=== PATIENT | male | born 1965 | race American Indian/Alaskan Native ===

== ENCOUNTER 2018-12-23 08:46 | Emergency (ER) | payer BC, OTHER ==
[2018-12-23] MEDS ORDERED: HYDROmorphone 1 MG/ML Syringe IVPUSH ONE ×2 (09:34→13:32)
[2018-12-23] MEDS ORDERED: Sodium Chloride 0.9% 10 ML Syringe FLUSH PRN (09:34)
[2018-12-23] MEDS ORDERED: Lactated Ringers 1,000 ML IV ONE (09:34)
[2018-12-23] MEDS ORDERED: Ondansetron 4 MG/2 ML SDV IVPUSH ONE (09:34)
--- NOTE | 2018-12-23 09:37 | EDM.PDOC ---
ED HPI GENERAL MEDICAL PROBLEM - General Chief Complaint: Abdominal Pain Stated Complaint: PAIN UNDER RIB CAGE Time Seen by Provider: 12/23/18 09:35 Source of Information: Reports: Patient History Limitations: Reports: No Limitations - History of Present Illness INITIAL COMMENTS - FREE TEXT/NARRATIVE: 53-year-old male presents for evaluation and treatment of upper abdominal pain. He reports the pain started on Friday, gradual onset. He describes as a burning ache and cramping sensation. It appears to be worse with sitting and better with standing and laying flat. He states it hurts to cough or take a deep breath he has had "a little bit of a cough ". Rates pain as a 9 out of 10. He denies any fevers, chills, nausea, vomiting or diarrhea. No chest pain or shortness of breath. Patient denies previous abdominal surgeries. He denies any recent trauma to the chest or abdomen. Onset: Gradual Duration: Day(s): (3), Constant Location: Reports: Abdomen (upper abdomen). Denies: Chest, Back Quality: Reports: Ache, Burning Severity: Severe Improves with: Reports: Movement (standing and laying flat) Worsens with: Reports: Breathing (and coughing), Other (sitting) Associated Symptoms: Denies: Chest Pain, cough w sputum, Fever/Chills, Nausea/ Vomiting, Shortness of Breath Bilateral Upper Abdomen Pain Score (Numeric/FACES): 9 - Related Data Allergies Allergy/AdvReac Type Severity Reaction Status Date / Time codeine Allergy Swelling Verified 12/23/18 08:54 Home Meds: Home Meds Cyclobenzaprine [Flexeril] 10 mg PO DAILY PRN 12/23/18 [History] Omeprazole 20 mg PO DAILY #20 tablet. 12/23/18 [Rx] Sucralfate [Carafate] 1 gm PO TID #30 tablet 12/23/18 [Rx] traMADol [Ultram] 50 mg PO Q4H PRN #20 tab 12/23/18 [Rx] Past Medical History Musculoskeletal History: Reports: Back Pain, Chronic, Neck Pain, Chronic - Past Surgical History Musculoskeletal Surgical History: Reports: Other (See Below) Other Musculoskeletal Surgeries/Procedures:: multiple back and neck surgeries Social & Family History - Tobacco Use Smoking Status *Q: Current Some Day Smoker Years of Tobacco use: 10 Packs/Tins Daily: 0.1 - Caffeine Use Caffeine Use: Reports: None - Recreational Drug Use Recreational Drug Use: No ED ROS GENERAL - Review of Systems Review Of Systems: See Below Constitutional: Denies: Fever, Chills Respiratory: Reports: Cough ("little bit"). Denies: Shortness of Breath, Sputum Cardiovascular: Denies: Chest Pain GI/Abdominal: Reports: Abdominal Pain (upper abdomen). Denies: Nausea, Vomiting Musculoskeletal: Denies: Leg Pain (no leg swelling) ED EXAM, GI/ABD - Physical Exam Exam: See Below Exam Limited By: No Limitations General Appearance: Alert, WD/WN, Mild Distress, Obese Ears: Normal External Exam Nose: Normal Inspection Throat/Mouth: Normal Inspection, Normal Lips, Normal Oropharynx, Normal Voice, No Airway Compromise Respiratory/Chest: No Respiratory Distress, Lungs Clear, Normal Breath Sounds, Chest Non-Tender Cardiovascular: Normal Peripheral Pulses, Regular Rate, Rhythm, No Murmur GI/Abdominal Exam: Normal Bowel Sounds, Soft, Tender (RUQ and epigastric area) Extremities: Normal Inspection Neurological: Alert, Oriented, Normal Cognition Psychiatric: Normal Affect, Normal Mood Skin Exam: Warm, Dry, Normal Color Course - Vital Signs Last Recorded V/S: Last Vital Signs Temp 97.6 F 12/23/18 08:56 Pulse 60 12/23/18 08:56 Resp 19 12/23/18 08:56 BP 157/95 H 12/23/18 08:56 Pulse Ox 100 12/23/18 08:56 - Orders/Labs/Meds Orders: Active Orders 24 hr Category Date Time Status Peripheral IV Care [RC] . DIRECTED Care 12/23/18 09:34 Active Peripheral IV Insertion Adult [OM.PC] Routine Oth 12/23/18 09:34 Ordered Labs: Laboratory Tests 12/23/18 12/23/18 12/23/18 Range/Units 09:10 09:10 09:45 WBC 6.88 (4.23-9.07) K/mm3 RBC 4.86 (4.63-6.08) M/mm3 Hgb 15.0 (13.7-17.5) gm/L Hct 45.4 (40.1-51.0) % MCV 93.4 H (79.0-92.2) fl MCH 30.9 (25.7-32.2) pg MCHC 33.0 (32.2-35.5) g/dl RDW Std Deviation 45.3 H (35.1-43.9) fL Plt Count 199 (163-337) K/mm3 MPV 9.8 (9.4-12.3) fl Neutrophils % (Manual) 74 H (40-60) % Band Neutrophils % 0 (0-10) % Lymphocytes % (Manual) 15 L (20-40) % Atypical Lymphs % 0 % Monocytes % (Manual) 8 (2-10) % Eosinophils % (Manual) 3 (0.8-7.0) % Basophils % (Manual) 0 L (0.2-1.2) Platelet Estimate Adequate RBC Morph Comment Normal Sodium 139 (136-145) mEq/L Potassium 4.4 (3.5-5.1) mEq/L Chloride 102 (98-107) mEq/L Carbon Dioxide 26 (21-32) mEq/L Anion Gap 15.4 H (5-15) BUN 16 (7-18) mg/dL Creatinine 1.1 (0.7-1.3) mg/dL Est Cr Clr Drug Dosing 92.37 mL/min Estimated GFR (MDRD) > 60 (>60) mL/min BUN/Creatinine Ratio 14.5 (14-18) Glucose 115 H (74-106) mg/dL Calcium 9.4 (8.5-10.1) mg/dL Total Bilirubin 0.3 (0.2-1.0) mg/dL GGT 121 H (15-85) U/L AST 27 (15-37) U/L ALT 51 (16-63) U/L Alkaline Phosphatase 66 (46-116) U/L C-Reactive Protein 0.2 (<1.0) mg/dL Total Protein 7.7 (6.4-8.2) g/dl Albumin 4.0 (3.4-5.0) g/dl Globulin 3.7 gm/dL Albumin/Globulin Ratio 1.1 (1-2) Amylase 38 (25-115) U/L Lipase 103 (73-393) U/L Urine Color Yellow (Yellow) Urine Appearance Clear (Clear) Urine pH 6.0 (5.0-8.0) Ur Specific [place] 1.020 (1.005-1.030) Urine Protein Negative (Negative) Urine Glucose (UA) Negative (Negative) Urine Ketones Negative (Negative) Urine Occult Blood Negative (Negative) Urine Nitrite Negative (Negative) Urine Bilirubin Negative (Negative) Urine Urobilinogen 0.2 (0.2-1.0) Ur Leukocyte Esterase Negative (Negative) Urine RBC Not seen (0-5) /hpf Urine WBC 0-5 (0-5) /hpf Ur Epithelial Cells 0-5 (0-5) /hpf Amorphous Sediment Rare H (NOT SEEN) /hpf Urine Bacteria Few (FEW) /hpf Urine Mucus Few (FEW) /hpf Meds: Medications Discontinued Medications Generic Name Dose Route Start Last Admin Trade Name Freq PRN Reason Stop Dose Admin Diatrizoate Meglum/Diatrizoate Sod 90 ml 12/23/18 12:40 12/23/18 13:26 Gastrografin 37% PO 12/23/18 12:41 90 ml ONETIME ONE Administration Hydromorphone HCl 1 mg 12/23/18 09:34 12/23/18 09:44 Dilaudid IVPUSH 12/23/18 09:35 1 mg ONETIME ONE Administration Hydromorphone HCl 0.5 mg 12/23/18 11:35 12/23/18 11:37 Dilaudid IVPUSH 12/23/18 11:36 0.5 mg ONETIME ONE Administration Hydromorphone HCl Confirm 12/23/18 11:37 12/23/18 13:20 Dilaudid Administered 12/23/18 11:38 Not Given Dose 0.5 mg .ROUTE .STK-MED ONE Hydromorphone HCl 0.5 mg 12/23/18 13:32 12/23/18 13:47 Dilaudid IVPUSH 12/23/18 13:33 0.5 mg ONETIME ONE Administration Lactated Ringer's 1,000 mls @ 999 mls/hr 12/23/18 09:34 12/23/18 09:42 Ringers, Lactated IV 12/23/18 10:34 999 mls/hr .BOLUS ONE Administration Iohexol 100 ml 12/23/18 12:40 12/23/18 13:26 Omnipaque-300 IVPUSH 12/23/18 12:41 100 ml ONETIME ONE Administration Ondansetron HCl 4 mg 12/23/18 09:34 12/23/18 09:43 Zofran IVPUSH 12/23/18 09:35 4 mg ONETIME ONE Administration Sodium Chloride 10 ml 12/23/18 09:34 12/23/18 09:41 Saline Flush FLUSH 10 ml ASDIRECTED PRN Administration Keep Vein Open Sodium Chloride 10 ml 12/23/18 12:40 12/23/18 13:26 Saline Flush FLUSH 12/23/18 12:41 10 ml ONETIME ONE Administration - Radiology Interpretation Free Text/Narrative:: Limited abdominal ultrasound: Multiple real-time images of the upper right abdomen were obtained. Comparison: No prior abdominal ultrasound. Liver is echogenic. No discrete focal abnormality is seen within the liver. Gallbladder shows no shadowing gallstones. No gallbladder wall thickening or biliary duct dilatation is seen. Right kidney shows no hydronephrosis or mass. Portal vein shows normal hepatopedal flow. Inferior vena cava is patent. Pancreas is mostly obscured from bowel gas. Impression: 1. Probable fatty infiltration within the liver. 2. Poorly seen pancreas. 3. No additional abnormality is appreciated on right upper quadrant abdominal ultrasound exam. Abdomen: Supine and upright views of the abdomen were obtained. Comparison: No prior abdominal x-ray. Bowel gas pattern is normal. No abnormal calcifications are seen. No free air is seen. Scattered endplate spurring is noted within the spine. Impression: 1. Incidental findings. Nothing acute is seen. CT abdomen and pelvis Technique: Multiple axial sections were obtained from above the dome of the diaphragm inferiorly through the pubic symphysis. Intravenous and oral contrast was utilized. Delayed images were obtained through the bladder. Findings: Small portion of the visualized lung bases are clear. Liver contains no focal abnormality. Spleen appears within normal limits. Adrenal glands show no nodule. Pancreas is within normal limits. Gallbladder contains no calcified gallstones. Kidneys show symmetric contrast enhancement without hydronephrosis or mass. Aorta shows no aneurysm. No retroperitoneal adenopathy or mesenteric abnormalities are seen. No pelvic mass or adenopathy is seen. Delayed images show contrast within the distal ureters and within the bladder. Appendix is visualized and appears normal in size. No free fluid or inflammatory change is seen within the abdomen or within the pelvis. Bone window settings were reviewed which show severe disc space narrowing at L5- S1. Degenerative change is noted within the apophyseal joints at L5-S1. Small fat-containing umbilical hernia is noted. Impression: 1. Incidental findings. Nothing acute is appreciated on CT study of the abdomen and pelvis. - Re-Assessments/Exams Free Text/Narrative Re-Assessment/Exam: 12/23/18 14:25 Reviewed labs and imaging with the patient. Obtained abdominal ultrasound and xray initially. Xray reviewed with Dr. Morales. Questionable area in the stomach, suggested abdomen/pelvis CT. Patient required several doses of pain medication during stay. CT found to be unremarkable. Dr. Morales suggested treatment for constipation. Recommended to patient along with close follow-up. Pain could also be from an ulcer or acalculous cholecystitis. Recommend close follow-up with PCP in [facility]. Patient in agreement. Will discharge home at this time. Discharge instructions as documented. Departure - Departure Time of Disposition: 14:30 Disposition: Home, Self-Care 01 Condition: Fair Clinical Impression: GERD (gastroesophageal reflux disease), Constipation - Discharge Information *PRESCRIPTION DRUG MONITORING PROGRAM REVIEWED*: No *COPY OF PRESCRIPTION DRUG MONITORING REPORT IN PATIENT OBDULIA: No Prescriptions: Omeprazole 20 mg PO DAILY #20 tablet. Sucralfate [Carafate] 1 gm PO TID #30 tablet traMADol [Ultram] 50 mg PO Q4H PRN #20 tab PRN Reason: Pain Instructions: Constipation, Adult, [id number], Gastroesophageal Reflux Disease, Adult Referrals: PCP,Unknown [Primary Care Provider] - Forms: ED Department Discharge Additional Instructions: you were given medication in the ER that can affect your ability to drive and operate machinery. Do not drive or operate machinery within 10 hours of taking perception narcotic pain medication. may take tramadol 1 tab every 4-6 hours as needed for pain. Take the omeprazole 1 tab daily. Take the Carafate 1 tab 3 times with meals. The contrast you had today in the ER is a mild laxative. If you do have a large bowel movement from this recommend some [id number] lactulose. Make sure you are drinking plenty of fluids. Follow-up with your primary care provider next week for recheck of your symptoms. Please return to the ER if your symptoms change or worsen. - My Orders Last 24 Hours: My Active Orders 12/23/18 09:34 Peripheral IV Care [RC] . DIRECTED Peripheral IV Insertion Adult [OM.PC] Routine - Assessment/Plan Last 24 Hours: My Active Orders 12/23/18 09:34 Peripheral IV Care [RC] . DIRECTED Peripheral IV Insertion Adult [OM.PC] Routine
[2018-12-23] MEDS ORDERED: HYDROmorphone 0.5 MG/0.5 ML Syringe IVPUSH ONE (11:35)
[2018-12-23] MEDS ORDERED: HYDROmorphone 0.5 MG/0.5 ML Syringe ONE (11:37)
[2018-12-23] MEDS ORDERED: Iohexol 647 MG/ML 100 ML Bottle IVPUSH ONE (12:40)
[2018-12-23] MEDS ORDERED: Diatrizoate Meglumine/Diatrizoate Sodium 37% 120 ML Bottle PO ONE (12:40)
[2018-12-23] MEDS ORDERED: Sodium Chloride 0.9% 10 ML Syringe FLUSH ONE (12:40)
--- NOTE | 2018-12-23 13:48 | CR ---
Abdomen: Supine and upright views of the abdomen were obtained. Comparison: No prior abdominal x-ray. Bowel gas pattern is normal. No abnormal calcifications are seen. No free air is seen. Scattered endplate spurring is noted within the spine. Impression: 1. Incidental findings. Nothing acute is seen. Diagnostic code #2
--- NOTE | 2018-12-23 13:48 | US ---
Limited abdominal ultrasound: Multiple real-time images of the upper right abdomen were obtained. Comparison: No prior abdominal ultrasound. Liver is echogenic. No discrete focal abnormality is seen within the liver. Gallbladder shows no shadowing gallstones. No gallbladder wall thickening or biliary duct dilatation is seen. Right kidney shows no hydronephrosis or mass. Portal vein shows normal hepatopedal flow. Inferior vena cava is patent. Pancreas is mostly obscured from bowel gas. Impression: 1. Probable fatty infiltration within the liver. 2. Poorly seen pancreas. 3. No additional abnormality is appreciated on right upper quadrant abdominal ultrasound exam. Diagnostic code #2
--- NOTE | 2018-12-23 13:51 | CT ---
CT abdomen and pelvis Technique: Multiple axial sections were obtained from above the dome of the diaphragm inferiorly through the pubic symphysis. Intravenous and oral contrast was utilized. Delayed images were obtained through the bladder. Findings: Small portion of the visualized lung bases are clear. Liver contains no focal abnormality. Spleen appears within normal limits. Adrenal glands show no nodule. Pancreas is within normal limits. Gallbladder contains no calcified gallstones. Kidneys show symmetric contrast enhancement without hydronephrosis or mass. Aorta shows no aneurysm. No retroperitoneal adenopathy or mesenteric abnormalities are seen. No pelvic mass or adenopathy is seen. Delayed images show contrast within the distal ureters and within the bladder. Appendix is visualized and appears normal in size. No free fluid or inflammatory change is seen within the abdomen or within the pelvis. Bone window settings were reviewed which show severe disc space narrowing at L5-S1. Degenerative change is noted within the apophyseal joints at L5-S1. Small fat-containing umbilical hernia is noted. Impression: 1. Incidental findings. Nothing acute is appreciated on CT study of the abdomen and pelvis. Diagnostic code #2
== END 2018-12-23 14:45 | disposition home or self-care (01) ==
LOC: JD.ED 08:46
DX: K21.9 Gastro-esophageal reflux disease without esophagitis (principal); K59.00 Constipation, unspecified; F17.210 Nicotine dependence, cigarettes, uncomplicated; Z79.899 Other long term (current) drug therapy; Z88.5 Allergy status to narcotic agent
CPT/HCPCS: 36415; 74019; 74177; 76705; 80053; 81001; 82150; 82977; 83690; 85007; 85027; 86140; 96361; 96374; 96375; 96376; 99284; J1170; J2405; J7120; Q9963; Q9967